=== PATIENT | female | born 1945 | race Caucasian/White ===

== ENCOUNTER 2017-11-04 09:41 | Inpatient (IN) ==
[2017-11-04 10:24] LABS: Basophils # 0.1 10*3/uL (0.0-0.2); Basophils % 0.4 % (0.0-0.8); Eosinophils # 0.2 10*3/uL (0.0-0.87); Eosinophils % 1.4 % (0.00-10.9); Hematocrit 38.7 VOL% (35.7-47.0); Hemoglobin 12.2 GM/DL (12.0-16.0); Immature Granulocytes % 0.6 %; Immature Granulocytes Absolute 0.09 #; Lymphocytes # 1.9 10*3/uL (1.4-4.0); Lymphocytes % 13.4 % (21.3-54.2); Mean Corpuscular HGB Conc 31.5 GM/DL (32-36); Mean Corpuscular Hemoglobin 33 PG (27-34); Mean Platelet Volume 10.2 FL (9.6-12.0); Monocytes # 1.5 10*3/uL (0.11-0.8); Monocytes % 10.4 % (1.7-12.7); NRBC # 0.09 10*3/uL; Neutrophils # 10.3 10*3/uL (1.4-7.4); Neutrophils % 73.8 % (38.7-73.9); Platelet Count 249 T/CUMM (130-400); Red Blood Count 3.65 MC/CUMM (3.8-5.5); Red Cell Distribution Width 18.2 % (9.3-17.3)
[2017-11-04 10:31] LABS: INR 1.2; PT Patient Result 12.4 SECS
[2017-11-04 10:37] LABS: Bilirubin,Total 1.2 MG/DL (0.2-1.0); Calcium 8.9 MG/DL (8.5-10.1); Osmolality,Calculated 276.7 MOS/KG (273-304); Potassium 3.9 MMOL/L (3.5-5.1); Total Protein 6.3 G/DL (6.4-8.3)
[2017-11-04 10:39] LABS: Troponin I Only 0.151 NG/ML (0.00-0.045)
[2017-11-04] MEDS ORDERED: LEVOFLOXACIN INJ 500 MG in PREMIX 1 EACH IV STA (10:48)
[2017-11-04 10:57] LABS: ABG Base Excess 6.5 MMOL/L (-2.5-2.5); ABG HCO3 30.4 MMOL/L (20-26); ABG Oxygen Saturation 99.4 % (95-100); ABG PCO2 67.1 MM HG (35-48); ABG PH 7.323 (7.35-7.45); ABG TCO2 31.6 MMOL/L (23-27)
[2017-11-04] MEDS ORDERED: LEVOFLOXACIN INJ 100 ML IV ONE (11:18)
[2017-11-04] MEDS ORDERED: ALBUTEROL/IPRATROPIUM 3 ML NEB RESP TX STA (11:31)
[2017-11-04] MEDS ORDERED: ALBUTEROL 2.5 MG/3 ML NEB RESP TX PRN (12:48)
[2017-11-04] MEDS ORDERED: ONDANSETRON 4 MG/2 ML VIAL IV PRN (12:48)
[2017-11-04] MEDS ORDERED: CALCIUM CARBONATE CHEW 500 MG TABLET PO PRN (13:22)
[2017-11-04] MEDS ORDERED: ALBUTEROL/IPRATROPIUM 3 ML NEB RESP TX PRN (13:24)
[2017-11-04] MEDS ORDERED: GLUCAGON 1 MG VIAL IM PRN (13:27)
[2017-11-04] MEDS ORDERED: DEXTROSE 50% 25 GM/50 ML VIAL IV STA (13:29)
[2017-11-04] MEDS ORDERED: LEVOFLOXACIN INJ 750 MG in PREMIX 1 EACH IV ONE (14:00)
[2017-11-04] MEDS ORDERED: AZTREONAM 2,000 MG in SYRINGE 1 EACH IV ONE (15:00)
[2017-11-04] MEDS ORDERED: EPOETIN ALFA 2,000 UNIT/1 ML VIAL IV PRN (15:20)
[2017-11-04 15:21] LABS: Hepatitis A Ab IgM Quant 0.17 Index; Hepatitis A Ab IgM Result Negative (Negative); Hepatitis B Core IgM Quant 0.23 Index; Hepatitis B Core IgM Result Negative (Negative); Hepatitis B Surface Ag Quant < 0.10 Index; Hepatitis B Surface Ag Result Negative (Negative); Hepatitis C Virus Ab Quant 0.27 Index; Hepatitis C Virus Ab Result Negative (Negative)
[2017-11-04] MEDS: PANTOPRAZOLE 40 MG VIAL IV SCH (16:02)
[2017-11-04 16:20] LABS: Troponin I Only 0.148 NG/ML (0.00-0.045)
[2017-11-04] MEDS: ALBUTEROL/IPRATROPIUM 3 ML NEB RESP TX SCH (19:48)
[2017-11-04] MEDS: PRAVASTATIN 40 MG TABLET PO SCH (21:51)
[2017-11-04] MEDS: AMIODARONE 200 MG TABLET PO SCH (21:51)
[2017-11-04] MEDS: CALCIUM (CARBONATE)/VITAMIN D 250 MG-125 UNIT TABLET PO SCH (21:52)
[2017-11-05] MEDS: AZTREONAM 500 MG in SYRINGE 1 EACH IV SCH ×5 (00:13→23:40)
[2017-11-05] MEDS: DEXTROSE 50% 25 GM/50 ML VIAL IV PRN ×3 (00:13→23:40)
[2017-11-05] MEDS: ALBUTEROL/IPRATROPIUM 3 ML NEB RESP TX SCH ×4 (01:24→20:44)
[2017-11-05 04:39] LABS: ABG Base Excess 8.1 MMOL/L (-2.5-2.5); ABG HCO3 31.8 MMOL/L (20-26); ABG Oxygen Saturation 95.5 % (95-100); ABG PH 7.381 (7.35-7.45); ABG PO2 75.8 MM HG (80-95); ABG TCO2 31.8 MMOL/L (23-27); Allen Test Positive; Pt O2 Delivery Device BIPAP
[2017-11-05] MEDS: LEVOTHYROXINE 88 MCG TABLET PO SCH (05:38)
[2017-11-05 05:52] LABS: Basophils # 0.1 10*3/uL (0.0-0.2); Basophils % 0.4 % (0.0-0.8); Eosinophils # 0.2 10*3/uL (0.0-0.87); Eosinophils % 1.4 % (0.00-10.9); Hematocrit 34.3 VOL% (35.7-47.0); Hemoglobin 11.1 GM/DL (12.0-16.0); Immature Granulocytes % 0.6 %; Immature Granulocytes Absolute 0.07 #; Lymphocytes % 16.8 % (21.3-54.2); Mean Corpuscular HGB Conc 32.4 GM/DL (32-36); Mean Corpuscular Hemoglobin 33 PG (27-34); Mean Corpuscular Volume 101.5 FL (87-102); Mean Platelet Volume 10.3 FL (9.6-12.0); Monocytes # 1.2 10*3/uL (0.11-0.8); Monocytes % 9.8 % (1.7-12.7); NRBC # 0.06 10*3/uL; Neutrophils # 8.4 10*3/uL (1.4-7.4); Platelet Count 205 T/CUMM (130-400); Red Blood Count 3.38 MC/CUMM (3.8-5.5); Red Cell Distribution Width 18.1 % (9.3-17.3); White Blood Count 11.8 T/CUMM (4-12)
[2017-11-05 06:00] LABS: INR 1.3; PT Patient Result 13.7 SECS
[2017-11-05 06:25] LABS: Troponin I Only 0.135 NG/ML (0.00-0.045)
[2017-11-05 06:30] LABS: Calcium 8.2 MG/DL (8.5-10.1); Osmolality,Calculated 277.5 MOS/KG (273-304); Potassium 3.7 MMOL/L (3.5-5.1); Risk Ratio 4.41; Thyroid Stimulating Hormone 15.6 uIU/ml (0.358-3.74); VLDL CHOLESTEROL 31.6 MG/DL
[2017-11-05] MEDS: CLOPIDOGREL 75 MG TABLET PO SCH (09:08)
[2017-11-05] MEDS: traMADol 50 MG TABLET PO PRN (09:08)
[2017-11-05] MEDS: MIDODRINE 5 MG TABLET PO SCH (09:08)
[2017-11-05] MEDS: ASPIRIN EC 81 MG TABLET PO SCH (09:08)
[2017-11-05] MEDS: AMIODARONE 200 MG TABLET PO SCH ×2 (09:09→21:55)
[2017-11-05] MEDS: ESCITALOPRAM 10 MG TABLET PO SCH (09:09)
[2017-11-05] MEDS: ACETAMINOPHEN 325 MG TABLET PO PRN ×2 (09:09→17:43)
[2017-11-05] MEDS: CALCIUM (CARBONATE)/VITAMIN D 250 MG-125 UNIT TABLET PO SCH ×2 (09:11→21:56)
[2017-11-05] MEDS: PANTOPRAZOLE 40 MG VIAL IV SCH (13:14)
[2017-11-05] MEDS: PRAVASTATIN 40 MG TABLET PO SCH (21:55)
[2017-11-06] MEDS: ALBUTEROL/IPRATROPIUM 3 ML NEB RESP TX SCH ×4 (01:17→19:28)
[2017-11-06] MEDS: LEVOTHYROXINE 88 MCG TABLET PO SCH (06:31)
[2017-11-06] MEDS: AZTREONAM 500 MG in SYRINGE 1 EACH IV SCH (06:31)
[2017-11-06 08:13] LABS: Basophils % 0.3 % (0.0-0.8); Eosinophils # 0.2 10*3/uL (0.0-0.87); Eosinophils % 1.6 % (0.00-10.9); Hematocrit 33.9 VOL% (35.7-47.0); Hemoglobin 10.6 GM/DL (12.0-16.0); Immature Granulocytes % 0.5 %; Immature Granulocytes Absolute 0.06 #; Lymphocytes # 2.3 10*3/uL (1.4-4.0); Lymphocytes % 19.7 % (21.3-54.2); Mean Corpuscular HGB Conc 31.3 GM/DL (32-36); Mean Corpuscular Hemoglobin 32 PG (27-34); Mean Corpuscular Volume 102.4 FL (87-102); Mean Platelet Volume 10.4 FL (9.6-12.0); Monocytes # 1.2 10*3/uL (0.11-0.8); Monocytes % 10.5 % (1.7-12.7); NRBC # 0.04 10*3/uL; Neutrophils # 7.9 10*3/uL (1.4-7.4); Neutrophils % 67.4 % (38.7-73.9); Platelet Count 194 T/CUMM (130-400); Red Blood Count 3.31 MC/CUMM (3.8-5.5); Red Cell Distribution Width 18.2 % (9.3-17.3); White Blood Count 11.8 T/CUMM (4-12)
[2017-11-06] MEDS: ASPIRIN EC 81 MG TABLET PO SCH (08:23)
[2017-11-06] MEDS: ESCITALOPRAM 10 MG TABLET PO SCH (08:23)
[2017-11-06] MEDS: MIDODRINE 5 MG TABLET PO SCH (08:23)
[2017-11-06] MEDS: AMIODARONE 200 MG TABLET PO SCH ×2 (08:23→21:59)
[2017-11-06] MEDS: CALCIUM (CARBONATE)/VITAMIN D 250 MG-125 UNIT TABLET PO SCH ×2 (08:27→21:59)
[2017-11-06] MEDS: CLOPIDOGREL 75 MG TABLET PO SCH (08:27)
[2017-11-06] MEDS ORDERED: cefTRIAXone 1,000 MG in SYRINGE 1 EACH IV SCH (08:30)
[2017-11-06 08:36] LABS: Calcium 8.2 MG/DL (8.5-10.1); Osmolality,Calculated 277.7 MOS/KG (273-304)
[2017-11-06] MEDS: PANTOPRAZOLE 40 MG VIAL IV SCH (12:42)
[2017-11-06] MEDS: CALCITRIOL 0.25 MCG CAPSULE PO SCH (15:19)
[2017-11-06] MEDS: LEVOFLOXACIN INJ 500 MG in PREMIX 1 EACH IV SCH (17:39)
[2017-11-06] MEDS: PRAVASTATIN 40 MG TABLET PO SCH (21:59)
[2017-11-07] MEDS: DEXTROSE 50% 25 GM/50 ML VIAL IV PRN (00:16)
[2017-11-07] MEDS: ALBUTEROL/IPRATROPIUM 3 ML NEB RESP TX SCH ×4 (00:42→20:52)
[2017-11-07] MEDS: LEVOTHYROXINE 88 MCG TABLET PO SCH (06:27)
[2017-11-07 07:38] LABS: Calcium 7.7 MG/DL (8.5-10.1); Osmolality,Calculated 278.5 MOS/KG (273-304); Potassium 3.6 MMOL/L (3.5-5.1)
[2017-11-07] MEDS: CLOPIDOGREL 75 MG TABLET PO SCH (08:35)
[2017-11-07] MEDS: MIDODRINE 5 MG TABLET PO SCH (08:35)
[2017-11-07] MEDS: ASPIRIN EC 81 MG TABLET PO SCH (08:36)
[2017-11-07] MEDS: CALCIUM (CARBONATE)/VITAMIN D 250 MG-125 UNIT TABLET PO SCH ×2 (08:36→21:54)
[2017-11-07] MEDS: traMADol 50 MG TABLET PO PRN ×2 (08:36→21:31)
[2017-11-07] MEDS: AMIODARONE 200 MG TABLET PO SCH ×2 (08:36→21:32)
[2017-11-07] MEDS: ESCITALOPRAM 10 MG TABLET PO SCH (08:36)
[2017-11-07] MEDS: PANTOPRAZOLE 40 MG VIAL IV SCH (12:16)
[2017-11-07] MEDS ORDERED: SODIUM CHLORIDE 0.9% 250 ML IV ONE (18:54)
[2017-11-07] MEDS ORDERED: methylPREDNISolone SOD SUC 125 MG/2 ML VIAL IV ONE (19:22)
[2017-11-07 20:49] LABS: Basophils # 0.1 10*3/uL (0.0-0.2); Basophils % 0.3 % (0.0-0.8); Eosinophils % 0.2 % (0.00-10.9); Hematocrit 35.6 VOL% (35.7-47.0); Hemoglobin 11.2 GM/DL (12.0-16.0); Immature Granulocytes % 0.8 %; Immature Granulocytes Absolute 0.13 #; Lymphocytes # 1.1 10*3/uL (1.4-4.0); Lymphocytes % 6.6 % (21.3-54.2); Mean Corpuscular HGB Conc 31.5 GM/DL (32-36); Mean Corpuscular Hemoglobin 33 PG (27-34); Mean Corpuscular Volume 103.8 FL (87-102); Mean Platelet Volume 10.6 FL (9.6-12.0); Monocytes # 1.4 10*3/uL (0.11-0.8); Monocytes % 8.1 % (1.7-12.7); NRBC # 0.02 10*3/uL; Neutrophils # 14.3 10*3/uL (1.4-7.4); Platelet Count 155 T/CUMM (130-400); Red Blood Count 3.43 MC/CUMM (3.8-5.5)
[2017-11-07 21:24] LABS: Albumin 1.6 G/DL (3.4-5.0); Bilirubin,Total 0.6 MG/DL (0.2-1.0); Calcium 7.7 MG/DL (8.5-10.1); Osmolality,Calculated 273.7 MOS/KG (273-304); Potassium 3.7 MMOL/L (3.5-5.1); Total Protein 5.2 G/DL (6.4-8.3)
[2017-11-07 21:25] LABS: Troponin I Only 0.13 NG/ML (0.00-0.045)
[2017-11-07] MEDS: PRAVASTATIN 40 MG TABLET PO SCH (21:33)
[2017-11-07] MEDS ORDERED: FUROSEMIDE INJ 160 MG in SODIUM CHLORIDE 0.9% 50 ML IV ONE (22:11)
[2017-11-08] MEDS: ALBUTEROL/IPRATROPIUM 3 ML NEB RESP TX SCH ×4 (00:48→19:47)
[2017-11-08] MEDS ORDERED: ALBUMIN 25% 50 GM in PREMIX 1 EACH IV ONE (03:59)
[2017-11-08] MEDS: LEVOTHYROXINE 88 MCG TABLET PO SCH (06:25)
[2017-11-08 06:31] LABS: Albumin 1.9 G/DL (3.4-5.0); Osmolality,Calculated 275.7 MOS/KG (273-304); Potassium 4.1 MMOL/L (3.5-5.1)
[2017-11-08] MEDS: PANTOPRAZOLE 40 MG TABLET PO SCH (08:49)
[2017-11-08] MEDS: CALCIUM (CARBONATE)/VITAMIN D 250 MG-125 UNIT TABLET PO SCH ×2 (08:50→21:41)
[2017-11-08] MEDS: methylPREDNISolone SOD SUC 40 MG/1 ML VIAL IV SCH ×2 (08:50→21:42)
[2017-11-08] MEDS: ESCITALOPRAM 10 MG TABLET PO SCH (08:50)
[2017-11-08] MEDS: CLOPIDOGREL 75 MG TABLET PO SCH (08:50)
[2017-11-08] MEDS: AMIODARONE 200 MG TABLET PO SCH ×2 (08:50→21:10)
[2017-11-08] MEDS: traMADol 50 MG TABLET PO PRN ×2 (08:51→21:10)
[2017-11-08] MEDS: ASPIRIN EC 81 MG TABLET PO SCH (08:51)
[2017-11-08] MEDS: MEROPENEM 500 MG in SYRINGE 1 EACH IV SCH (08:53)
[2017-11-08] MEDS: MIDODRINE 5 MG TABLET PO SCH (11:41)
[2017-11-08] MEDS: CALCITRIOL 0.25 MCG CAPSULE PO SCH ×2 (11:41→13:00)
[2017-11-08] MEDS: ACETAMINOPHEN 325 MG TABLET PO PRN (16:50)
[2017-11-08] MEDS: LEVOFLOXACIN INJ 500 MG in PREMIX 1 EACH IV SCH (17:11)
[2017-11-08] MEDS: PRAVASTATIN 40 MG TABLET PO SCH (21:41)
[2017-11-09] MEDS: ACETAMINOPHEN 325 MG TABLET PO PRN (00:08)
[2017-11-09] MEDS: MORPHINE 4 MG/1 ML VIAL IV PRN ×2 (02:35→21:37)
[2017-11-09 05:20] LABS: Basophils % 0.1 % (0.0-0.8); Hematocrit 30.2 VOL% (35.7-47.0); Hemoglobin 9.8 GM/DL (12.0-16.0); Immature Granulocytes % 0.6 %; Immature Granulocytes Absolute 0.06 #; Lymphocytes # 0.3 10*3/uL (1.4-4.0); Lymphocytes % 2.6 % (21.3-54.2); Mean Corpuscular HGB Conc 32.5 GM/DL (32-36); Mean Corpuscular Hemoglobin 32 PG (27-34); Mean Corpuscular Volume 99.3 FL (87-102); Mean Platelet Volume 11.1 FL (9.6-12.0); Monocytes # 0.6 10*3/uL (0.11-0.8); Monocytes % 6.2 % (1.7-12.7); NRBC # 0.03 10*3/uL; Neutrophils % 90.5 % (38.7-73.9); Platelet Count 190 T/CUMM (130-400); Red Blood Count 3.04 MC/CUMM (3.8-5.5); Red Cell Distribution Width 17.6 % (9.3-17.3); White Blood Count 9.9 T/CUMM (4-12)
[2017-11-09 05:41] LABS: Band Neutrophils 2 % (0-10); Giant Platelets Few; Lymphocytes 4 % (20-55); Platelet Estimate Adequate; Segmented Neutrophils 92 % (50-85); Total Cells Counted 100
[2017-11-09 05:42] LABS: Hypochromasia Slight
[2017-11-09 06:00] LABS: Calcium 8.4 MG/DL (8.5-10.1); Osmolality,Calculated 274.1 MOS/KG (273-304); Potassium 3.6 MMOL/L (3.5-5.1)
[2017-11-09] MEDS: LEVOTHYROXINE 88 MCG TABLET PO SCH (07:00)
[2017-11-09] MEDS: ALBUTEROL/IPRATROPIUM 3 ML NEB RESP TX SCH ×4 (07:20→19:44)
[2017-11-09] MEDS: PANTOPRAZOLE 40 MG TABLET PO SCH ×2 (08:13→09:13)
[2017-11-09] MEDS: AMIODARONE 200 MG TABLET PO SCH ×2 (08:13→09:13)
[2017-11-09] MEDS: LISINOPRIL 5 MG TABLET PO SCH ×2 (08:14→14:14)
[2017-11-09] MEDS: CLOPIDOGREL 75 MG TABLET PO SCH ×2 (08:14→09:13)
[2017-11-09] MEDS: ASPIRIN EC 81 MG TABLET PO SCH ×2 (08:15→09:13)
[2017-11-09] MEDS: CALCIUM (CARBONATE)/VITAMIN D 250 MG-125 UNIT TABLET PO SCH ×3 (08:16→20:13)
[2017-11-09] MEDS: ESCITALOPRAM 10 MG TABLET PO SCH ×2 (08:16→09:13)
[2017-11-09] MEDS: methylPREDNISolone SOD SUC 40 MG/1 ML VIAL IV SCH (08:17)
[2017-11-09] MEDS: MEROPENEM 500 MG in SYRINGE 1 EACH IV SCH (08:23)
[2017-11-09] MEDS: MIDODRINE 5 MG TABLET PO SCH (09:15)
[2017-11-09] MEDS: MUPIROCIN 2% OINT 22 GM TUBE TOP SCH ×2 (14:13→20:13)
[2017-11-09] MEDS: methylPREDNISolone SOD SUC 125 MG/2 ML VIAL IV SCH (16:53)
[2017-11-09] MEDS: traMADol 50 MG TABLET PO PRN (20:12)
[2017-11-09] MEDS: PRAVASTATIN 40 MG TABLET PO SCH (20:12)
[2017-11-09] MEDS ORDERED: ZIPRASIDONE 20 MG/1 ML VIAL IM PRN (23:49)
[2017-11-10] MEDS ORDERED: LORazepam 2 MG/1 ML VIAL IV ONE (00:13)
[2017-11-10] MEDS: methylPREDNISolone SOD SUC 125 MG/2 ML VIAL IV SCH ×3 (00:24→18:35)
[2017-11-10] MEDS: ALBUTEROL/IPRATROPIUM 3 ML NEB RESP TX SCH ×4 (01:09→20:00)
[2017-11-10 04:59] LABS: Basophils % 0.1 % (0.0-0.8); Hematocrit 31.3 VOL% (35.7-47.0); Hemoglobin 10.2 GM/DL (12.0-16.0); Immature Granulocytes % 0.9 %; Immature Granulocytes Absolute 0.16 #; Lymphocytes # 0.3 10*3/uL (1.4-4.0); Lymphocytes % 1.5 % (21.3-54.2); Mean Corpuscular HGB Conc 32.6 GM/DL (32-36); Mean Corpuscular Hemoglobin 32 PG (27-34); Mean Corpuscular Volume 99.1 FL (87-102); Mean Platelet Volume 10.9 FL (9.6-12.0); Monocytes # 1.2 10*3/uL (0.11-0.8); Monocytes % 6.8 % (1.7-12.7); NRBC # 0.08 10*3/uL; Neutrophils # 15.7 10*3/uL (1.4-7.4); Neutrophils % 90.7 % (38.7-73.9); Platelet Count 224 T/CUMM (130-400); Red Blood Count 3.16 MC/CUMM (3.8-5.5); Red Cell Distribution Width 17.2 % (9.3-17.3); White Blood Count 17.3 T/CUMM (4-12)
[2017-11-10 05:33] LABS: Calcium 8.7 MG/DL (8.5-10.1); Osmolality,Calculated 272.5 MOS/KG (273-304); Potassium 4.1 MMOL/L (3.5-5.1)
[2017-11-10 05:39] LABS: Lymphocytes 3 % (20-55); Segmented Neutrophils 93 % (50-85); Total Cells Counted 100
[2017-11-10 05:40] LABS: Hypochromasia 1+; Macrocytosis 1+; Target Cells Slight
[2017-11-10 05:41] LABS: Platelet Estimate Normal; Polychromasia Slight
[2017-11-10] MEDS: ACETAMINOPHEN 650 MG SUPP RECTAL PRN (06:59)
[2017-11-10] MEDS: LEVOTHYROXINE 88 MCG TABLET PO SCH (07:01)
[2017-11-10] MEDS: MUPIROCIN 2% OINT 22 GM TUBE TOP SCH ×2 (09:05→23:03)
[2017-11-10] MEDS: MORPHINE 4 MG/1 ML VIAL IV PRN ×2 (09:24→21:20)
[2017-11-10] MEDS: LISINOPRIL 5 MG TABLET PO SCH (09:58)
[2017-11-10] MEDS: ASPIRIN EC 81 MG TABLET PO SCH (09:58)
[2017-11-10] MEDS: CLOPIDOGREL 75 MG TABLET PO SCH (09:58)
[2017-11-10] MEDS: CALCIUM (CARBONATE)/VITAMIN D 250 MG-125 UNIT TABLET PO SCH ×2 (09:58→23:03)
[2017-11-10] MEDS: ESCITALOPRAM 10 MG TABLET PO SCH (09:58)
[2017-11-10] MEDS: PANTOPRAZOLE 40 MG TABLET PO SCH (09:59)
[2017-11-10] MEDS: MIDODRINE 5 MG TABLET PO SCH (09:59)
[2017-11-10] MEDS: MEROPENEM 500 MG in SYRINGE 1 EACH IV SCH (11:07)
[2017-11-10] MEDS: CALCITRIOL 0.25 MCG CAPSULE PO SCH (13:35)
[2017-11-10] MEDS ORDERED: EPOETIN ALFA 10,000 UNIT/1 ML VIAL IV PRN (17:00)
[2017-11-10] MEDS: LEVOFLOXACIN INJ 500 MG in PREMIX 1 EACH IV SCH (18:35)
[2017-11-10] MEDS: PRAVASTATIN 40 MG TABLET PO SCH (23:03)
[2017-11-11] MEDS: methylPREDNISolone SOD SUC 125 MG/2 ML VIAL IV SCH ×3 (00:10→16:31)
[2017-11-11] MEDS: ALBUTEROL/IPRATROPIUM 3 ML NEB RESP TX SCH ×4 (01:36→20:28)
[2017-11-11] MEDS ORDERED: ZALEPLON 5 MG CAPSULE PO PRN (01:39)
[2017-11-11 05:00] LABS: Basophils % 0.1 % (0.0-0.8); Hematocrit 31.4 VOL% (35.7-47.0); Hemoglobin 10.1 GM/DL (12.0-16.0); Immature Granulocytes % 0.8 %; Immature Granulocytes Absolute 0.13 #; Lymphocytes # 0.2 10*3/uL (1.4-4.0); Lymphocytes % 0.9 % (21.3-54.2); Mean Corpuscular HGB Conc 32.2 GM/DL (32-36); Mean Corpuscular Hemoglobin 33 PG (27-34); Mean Platelet Volume 10.8 FL (9.6-12.0); Monocytes # 0.7 10*3/uL (0.11-0.8); NRBC # 0.11 10*3/uL; Neutrophils # 16.1 10*3/uL (1.4-7.4); Neutrophils % 94.2 % (38.7-73.9); Platelet Count 181 T/CUMM (130-400); Red Blood Count 3.11 MC/CUMM (3.8-5.5); Red Cell Distribution Width 17.5 % (9.3-17.3); White Blood Count 17.1 T/CUMM (4-12)
[2017-11-11 05:28] LABS: Calcium 8.6 MG/DL (8.5-10.1); Osmolality,Calculated 277.8 MOS/KG (273-304); Potassium 3.9 MMOL/L (3.5-5.1)
[2017-11-11] MEDS: MORPHINE 4 MG/1 ML VIAL IV PRN ×2 (05:57→10:19)
[2017-11-11] MEDS: LEVOTHYROXINE 88 MCG TABLET PO SCH (05:57)
[2017-11-11 05:59] LABS: Band Neutrophils 2 % (0-10); Hypochromasia 2+; Lymphocytes 2 % (20-55); Nucleated Red Blood Cells 1 (0-5); Segmented Neutrophils 94 % (50-85); Total Cells Counted 100
[2017-11-11 06:00] LABS: Target Cells Few
[2017-11-11 06:01] LABS: Macrocytosis 1+; Platelet Estimate Adequate
[2017-11-11] MEDS: MUPIROCIN 2% OINT 22 GM TUBE TOP SCH (08:39)
[2017-11-11] MEDS: ACETAMINOPHEN 325 MG TABLET PO PRN (08:40)
[2017-11-11] MEDS: ASPIRIN EC 81 MG TABLET PO SCH (10:07)
[2017-11-11] MEDS: MIDODRINE 5 MG TABLET PO SCH (10:08)
[2017-11-11] MEDS: LISINOPRIL 5 MG TABLET PO SCH (10:08)
[2017-11-11] MEDS: ESCITALOPRAM 10 MG TABLET PO SCH (10:08)
[2017-11-11] MEDS: CLOPIDOGREL 75 MG TABLET PO SCH (10:08)
[2017-11-11] MEDS: CALCIUM (CARBONATE)/VITAMIN D 250 MG-125 UNIT TABLET PO SCH ×2 (10:08→21:53)
[2017-11-11] MEDS: PANTOPRAZOLE 40 MG TABLET PO SCH (10:09)
[2017-11-11] MEDS: MEROPENEM 500 MG in SYRINGE 1 EACH IV SCH (10:09)
[2017-11-11] MEDS ORDERED: LORazepam 2 MG/1 ML VIAL IV ONE (13:52)
[2017-11-11] MEDS: ACETAMINOPHEN 650 MG SUPP RECTAL PRN (16:31)
[2017-11-11] MEDS: PRAVASTATIN 40 MG TABLET PO SCH (21:53)
[2017-11-11 23:09] VITALS: BP 135/67
== END 2017-11-11 22:53 | disposition expired | DRG 291 ==
LOC: EDUNIT# → EDBD → N.ED 09:41 → SUATTDRO 11:28 → N.EDINP 11:28 → N.ICU 13:44 → N.5E 11-05 17:02 → N.CC 11-07 19:40
PROVIDERS: ADMIT Hospitalist; ATTEND Internal Medicine